=== PATIENT | female | born 1995 | race Caucasian/White ===

== ENCOUNTER 2021-07-04 00:28 | Observation (INO) | payer MEDICAID ==
[~2021-07-04] VITALS: Ht 182.9 cm; Wt 99.8 kg
[2021-07-04 01:06] LABS: BASOPHILS ABSOLUTE AUTO 0.04 K/mm3 (0.00-0.23); BASOPHILS PERCENT AUTO 1 % (0-2); EOSINOPHILS ABSOLUTE AUTO 0.15 K/mm3 (0.00-0.68); EOSINOPHILS PERCENT AUTO 2 % (0-6); Hematocrit 37.6 % (33.0-51.0); Hemoglobin 12.9 g/dL (11.5-16.0); IMMATURE GRAN ABSOLUTE AUTO 0.02 K/mm3 (0.00-0.10); IMMATURE GRAN PERCENT AUTO 0 % (0-1); LYMPHOCYTES ABSOLUTE AUTO 1.99 K/mm3 (0.84-5.20); LYMPHOCYTES PERCENT AUTO 26 % (21-46); MONOCYTES ABSOLUTE AUTO 0.61 K/mm3 (0.16-1.47); MONOCYTES PERCENT AUTO 8 % (4-13); Mean Corpuscular HGB 30.4 pg (26.0-34.0); Mean Corpuscular HGB Conc 34.3 g/dL (31.5-36.5); Mean Corpuscular Volume 89 fL (80-100); Mean Platelet Volume 10.4 fL (9.1-12.4); NEUTROPHILS ABSOLUTE AUTO 4.82 K/mm3 (1.96-9.15); NEUTROPHILS PERCENT AUTO 63 % (41-73); Platelet Count 227 K/mm3 (150-400); RDW Coefficient Variation 13.2 % (11.7-14.2); RDW Standard Deviation 43.1 fL (35.1-46.3); Red Blood Cell Count 4.25 M/mm3 (3.80-5.20); White Blood Cell Count 7.63 K/mm3 (4.00-11.30)
[2021-07-04 01:25] LABS: Albumin, Blood 3.6 g/dL (3.4-5.0); Albumin/Globulin Ratio 1.1 (0.8-1.8); Bilirubin, Total 0.5 mg/dL (0.1-1.0); Bun/Creatinine Ratio 20.7 (12.0-20.0); Creatinine, Blood 0.58 mg/dL (0.40-1.00); Globulin, Blood 3.3 g/dL (2.2-4.0); Potassium, Blood 3.8 mmol/L (3.5-5.5); Total Protein, Blood 6.9 g/dL (6.4-8.2)
[2021-07-04 02:20] LABS: Source, Urine Clean Catch
[2021-07-04 02:23] LABS: Bilirubin, Urine Neg (Neg); Blood, Urine Neg (Neg); Glucose Qualitative, Urine Neg (Neg); Ketones, Urine Neg (Neg); Leukocyte Esterase, Urine 3+ (Neg); Nitrite, Urine Neg (Neg); Protein, Urine Neg (Neg); Specific Gravity, Urine 1.025 (1.003-1.022); Urobilinogen, Urine NORM (Normal)
[2021-07-04 02:31] LABS: Appearance, Urine Hazy (Clear); Color, Urine Yellow (P-Yellow)
[2021-07-04 02:33] LABS: Amorphous Light (0-Heavy); Bacteria Mod /hpf; Red Blood Cells, Urine Not Seen /hpf (0-2); Squamous Epithelial Cells Rare /hpf (Few); White Blood Cells, Urine 25-50 /hpf (0-5)
[2021-07-04 06:14] LABS: Influenza A, PCR NEGATIVE (NEGATIVE); Influenza B, PCR NEGATIVE (NEGATIVE); Resp Syncytial Virus, PCR NEGATIVE (NEGATIVE); SARS-Cov-2 (COVID-19) PCR, MMC NEGATIVE (NEGATIVE)
--- NOTE | 2021-07-04 06:35 | NUR ---
0320: PT ARRIVED FROM ED TO ROOM 213. AOX4. PT HAS MINIMAL PAIN WHEN ARRIVED. AMBULATES INDEPENDENTLY IN ROOM. ABD TENDER, HYPOACTIVE AND NO GUARDING. PT REPORT VERY MILD NAUSEA, HAS IMPROVED SINCE SHE GOT ZOFRAN AT THE EMERGENC DEPARTMENT. VSS. PT ALSO DENIES VOMITING. PT VOIDING WITHOUT DIFFICULTY. SHE IS 8.5 WKS . NPO AFTER MIDNIGHT. CALL LIGHT WITHIN REAC. WILL CONTINUE TO MONITOR
--- NOTE | 2021-07-04 06:38 | NUR ---
ROCEPHIN GIVEN, SURGICAL PREP DONE AND COVID SWAB WELL..
--- NOTE | 2021-07-04 06:39 | NUR ---
NO ACUTE CHANGES SINCE PT CAME IN. SHE HAS BEEN SLEEPING AND COMFORTABLE IN BED. VSS. MINIMAL PAIN AT THIS TIME. WILL PROVIDE REPORT TO ONCOMING NURSE AND NOTIFY ABOUT NEEDING ORDERS FOR TODAY'S PLAN. CALL LIGHT WITHIN REACH. WILL CONINUE TO MONITOR AND WILL PROVIDE REPORT TO ONCOMING NURSE.
--- NOTE | 2021-07-04 14:17 | NUR ---
1410 TO DAY SURGERY VIA BED, PTS MOTHER AT BEDSIDE
--- NOTE | 2021-07-04 18:48 | NUR ---
1830 RETURN TO ROOM FROM PACU. ABD LAP SITES WITH WOUND GLUE INTACT. PT REPORTS PERSISTANT NAUSEA . CURRENT ABD PAIN 7/10 AND DILAUDID GIVEN PER REQUEST. PTS MOTHER PRESENT AND GIVEN WRITTEN PRESCRIPTION FOR NORCO
[2021-07-04] MEDS ORDERED: HYDR1TAB94 PO (18:58)
--- NOTE | 2021-07-05 04:24 | NUR ---
PT A&0X4, VSS, COOPERATIVE W/ CARE AND INTERVENTIONS, INDEPENDENT AMBULATION TO BATHROOM, POD1, 4 LAP SITES TO ABDOMEN, DERMABOND CLEAN, DRY, AND INTACT. LAP SITES TENDER UPON LIGHT PALPATATION. PO INTAKE TOLERATED. NAUSEA REPORTED RESOLVED AFTER MEDICATED PER EMAR, ADEQUATE PAIN RELIEF REPORTED WITH ORAL PAIN MEDICATION. PT REPORTS BEING 8 WEEKS , VAGINAL SPOTTING NOTED WHEN REMOVING BEDSHEETS, PINK, CLOUDY URINE NOTED ONLY WITH 1ST VOID POST SURGERY, PROVIDER NOTIFIED, ORDER FOR ULTRASOUND ADDED. PT REPORTS SLEEPING T/O THE NIGHT, CURRENTLY RESTING IN BED, WILL MONITOR UNTIL REPORT GIVEN TO THE NEXT SHIFT.
--- NOTE | 2021-07-05 13:05 | NUR ---
DISCHARGE VSS ON RA, PAIN MANAGED PER EMAR. LAP SITES ON ABDOMEN C/D/I. EATING, DRINKING, & VOIDING WELL. DENIES N/V. NO BM YET BUT REPORTS FLATUS. DISCUSSED DISCHARGE INSTRUCTINS & SENT WITH PATIENT. ESCORTED OUT VIA W/C.
[2021-07-07] MEDS ORDERED: CEPH500 PO (09:25)
[2021-07-07] MEDS ORDERED: ONDA4 PO (09:25)
== END 2021-07-05 13:18 | disposition home or self-care (01) ==
LOC: ER 00:28 → SURS 00:29
PROVIDERS: Emergency Medicine; ADMIT Surgery
PROC: 0FT44ZZ Resection of Gallbladder, Percutaneous Endoscopic Approach (ICD-10-PCS; principal; 2021-07-04 13:15)
DX: O99.611 Diseases of the digestive system complicating pregnancy, first trimester (principal); O20.9 Hemorrhage in early pregnancy, unspecified; O23.41 Unspecified infection of urinary tract in pregnancy, first trimester; O99.511 Diseases of the respiratory system complicating pregnancy, first trimester; K80.00 Calculus of gallbladder with acute cholecystitis without obstruction; J45.909 Unspecified asthma, uncomplicated; Z3A.08 8 weeks gestation of pregnancy; N39.0 Urinary tract infection, site not specified; Z91.040 Latex allergy status
CPT/HCPCS: 0241U; 76705; 76815; 76817; 80053; 81001; 81025; 83690; 85025; 87086; 96374; 96375; 96376; 99285-25; A9270; G0378; J0330; J0690; J0696; J1100; J1170; J1885; J2405; J2550; J2704; J2710; J2765; J3010; J7030; J7040; J7120